=== PATIENT | male | born 1945 | race Caucasian/White ===

== ENCOUNTER → 2019-11-17 | Outpatient (CLI) | payer MEDICARE ==
[2019-11-18 13:58] LABS: Stool Occult Bld Immuno 1 Negative (NEGATIVE)
== END | disposition home or self-care (01) ==
LOC: LAB 21:45 → LAB SHORT 21:45
PROVIDERS: Nurse Practitioner Family
DX: Z12.11 Encounter for screening for malignant neoplasm of colon (principal)
CPT/HCPCS: G0328

== ENCOUNTER → 2021-06-13 | Outpatient (CLI) | payer MEDICARE | END | disposition home or self-care (01) | LOC: LAB 12:30 → LAB SHORT 12:30 | DX: T14.8XXA Other injury of unspecified body region, initial encounter (principal) | CPT/HCPCS: 87070; 87077; 87186; 87205 ==

== ENCOUNTER → 2021-07-04 | Outpatient (CLI) | payer MEDICARE | LOC: LAB SHORT 10:41 → LAB 10:41 | DX: L03.114 Cellulitis of left upper limb (principal) | CPT/HCPCS: 87070; 87205 ==

== ENCOUNTER 2023-07-18 08:12 | Day surgery (SDC) | payer MEDICARE | END 2023-07-18 22:37 | disposition home or self-care (01) | LOC: WOUND 08:12 | DX: E11.621 Type 2 diabetes mellitus with foot ulcer (principal); L97.512 Non-pressure chronic ulcer of other part of right foot with fat layer exposed; E11.51 Type 2 diabetes mellitus with diabetic peripheral angiopathy without gangrene; E11.42 Type 2 diabetes mellitus with diabetic polyneuropathy; I87.2 Venous insufficiency (chronic) (peripheral) | CPT/HCPCS: 73660; G0463 ==

== ENCOUNTER 2023-08-01 02:03 | Day surgery (SDC) | payer MEDICARE ==
[2023-08-02] MEDS ORDERED: LISI5 PO (10:05)
[2023-08-02] MEDS ORDERED: GLIM2 PO (10:05)
== END 2023-08-01 22:38 | disposition home or self-care (01) ==
LOC: WOUND 02:03
DX: E11.621 Type 2 diabetes mellitus with foot ulcer (principal); L97.512 Non-pressure chronic ulcer of other part of right foot with fat layer exposed; L89.892 Pressure ulcer of other site, stage 2; E11.42 Type 2 diabetes mellitus with diabetic polyneuropathy; E11.51 Type 2 diabetes mellitus with diabetic peripheral angiopathy without gangrene; I87.2 Venous insufficiency (chronic) (peripheral)
CPT/HCPCS: G0463

== ENCOUNTER 2023-08-30 13:11 | Day surgery (SDC) | payer MEDICARE ==
[~2023-08-30] VITALS: Ht 185.4 cm; Wt 106.4 kg
[~2023-08-30 13:11] MED LIST: GLIM2 PO; LISI5 PO
[2023-08-30] MEDS ORDERED: SULTRIDS PO (13:52)
[2023-08-30 16:17] VITALS: BP 121/71
--- NOTE | 2023-08-30 16:25 | NUR ---
08/30/23 1625 Bran Araiza IV REMOVED INTACT. SITE WNL.
== END 2023-08-30 16:25 | disposition home or self-care (01) ==
LOC: ORSCSDS 13:11
PROVIDERS: Podiatrist Foot & Ankle Surgery
PROC: 0Y6R0Z0 Detachment at Right 2nd Toe, Complete, Open Approach (ICD-10-PCS; principal; 2023-08-30 14:45)
DX: M86.171 Other acute osteomyelitis, right ankle and foot (principal); E11.22 Type 2 diabetes mellitus with diabetic chronic kidney disease; E11.621 Type 2 diabetes mellitus with foot ulcer; I12.9 Hypertensive chronic kidney disease with stage 1 through stage 4 chronic kidney disease, or unspecified chronic kidney disease; N18.9 Chronic kidney disease, unspecified; E66.9 Obesity, unspecified; Z68.30 Body mass index [BMI] 30.0-30.9, adult; Z79.899 Other long term (current) drug therapy
CPT/HCPCS: 82947; 88305; 88311; J0690; J2001; J2250; J2704; J2795; J3010; J7120